=== PATIENT | male | born 1955 | race Caucasian/White ===

== ENCOUNTER 2018-11-30 22:09 | Emergency (ER) | payer SELFPAY ==
[~2018-11-30] VITALS: Ht 170.2 cm; Wt 60.1 kg
[2018-11-30 22:19] VITALS: Ht 170.2 cm; Wt 60.1 kg
--- NOTE | 2018-12-01 00:22 | ERD ---
ER Documentation Chief Complaint Chief Complaint Pt reports dizziness and when closing eyes seeing lights HPI 63-year-old male, presents the emergency department, complaining of dizziness a nd feeling dehydrated, the patient is requesting IV fluids. Otherwise he denies chest pain, no shortness of breath, no leg edema, no headache, no distal weakness, numbness or tingling. ROS All systems reviewed and are negative except as per history of present illness. Allergies Allergies: Coded Allergies: No Known Allergy (Unverified , 11/30/18) PMhx/Soc Patient with history of hypertension, kidney stones status post lithotripsy several years ago. FmHx Family History: No diabetes, No coronary disease Physical Exam Vitals Vital Signs Date Temp Pulse Resp B/P (MAP) Pulse Ox O2 O2 Flow FiO2 Time Delivery Rate 11/30/18 97.7 76 16 155/82 98 22:19 (106) Physical Exam Const: No acute distress Head: Atraumatic Eyes: Normal Conjunctiva ENT: Normal External Ears, Nose and Mouth. Neck: Full range of motion. No meningismus. Resp: Clear to auscultation bilaterally Cardio: Regular rate and rhythm, no murmurs Abd: Soft, non tender, non distended. Normal bowel sounds Skin: No petechiae or rashes Back: No midline or flank tenderness Ext: No cyanosis, or edema Neur: Awake and alert Psych: Normal Mood and Affect Results 24 hrs Current Medications Medications Dose Sig/Kallie Start Time Status Last (Trade) Ordered Route PRN Stop Time Admin Dose Reason Admin Sodium 500 ml @ Q1H ONCE 12/01/18 DC 12/01/18 Chloride 500 mls/hr IV 00:30 00:45 12/01/18 01:29 Procedures/MDM Vital signs stable. Differential diagnosis include but not limited to: Dehydration, gastroenteritis, thyroid disease, autoimmune disorder. Physical examination and clinical presentation consistent most likely with dehydration. During the ED course the patient remained stable, no new complaints. The patient received treatment with IV fluids presenting overall improvement of the symptoms . Results and clinical impression discussed with the patient who agrees with management. The patient is stable to be treated outpatient and will be discharged home; some side effects of prescribed medications (headache, rash, nausea, vomiting, diarrhea, drowsiness, habituation, bleeding, hypertension, interactions with other medications) were reviewed. The patient was informed that the evaluation in the emergency department has been done to rule out an acute emergency, therefore, chronic conditions like ma lignancy or other diseases have not been evaluated; therefore, the patient was instructed to follow up with the primary care provider in the next 48h. If symptoms persist, worsen or new symptoms develop, then patient should return to the ED immediately. Instructions explained and given directly by me to the patient with acknowledgment and demonstrated understanding. Disclaimer: Inadvertent spelling and grammatical errors are likely due to EHR/dictation software use and do not reflect on the overall quality of patient care. Also, please note that the electronic time recorded on this note does not necessarily reflect the actual time of the patient encounter. Departure Diagnosis: Primary Impression: Dehydration Condition: Stable Additional Instructions: Thank you very much for allowing us to participate in your care. Your health and safety is our top priority at [facility]. The evaluation in the emergency department has been done to rule out an acute emergency, therefore, chronic conditions like malignancy or other diseases have not been evaluated; therefore, you need to follow up with a primary care provider in the next 48h. If symptoms persist, worsen or new symptoms develop, then patient should return to the ED immediately. Call your primary care doctor TOMORROW for an appointment during the next 2-4 days and bring all the information provided. Have prescriptions filled and follow precisely the directions on the label. If the symptoms get worse and your provider is unavailable, return to the Emergency Department immediately. MAYURI DE LA O MD Dec 01, 2018 00:22
[2018-12-01] MEDS ORDERED: SOD CHLORIDE 0.9% 500 ML IV ONE (00:30)
[2018-12-01 04:15] VITALS: BP 137/72; PULSE 75; RESP 16
== END 2018-12-01 04:25 | disposition home or self-care (01) ==
LOC: FTE 22:09
DX: E86.0 Dehydration (principal)
CPT/HCPCS: 96360; 99284; J7040